=== PATIENT | female | born 1980 | race Hispanic/Latino ===

== ENCOUNTER 2025-02-23 21:16 | Emergency (ER) | payer MEDICAID, OTHER ==
[2025-02-23] MEDS ORDERED: Lidocaine Viscous Sol 2% 15 ml UD Cup ONE (21:53)
== END 2025-02-23 22:21 | disposition home or self-care (01) ==
LOC: CSHERS 21:16
DX: K04.01 Reversible pulpitis (principal); I25.2 Old myocardial infarction; F17.200 Nicotine dependence, unspecified, uncomplicated
CPT/HCPCS: 64400; J0665